=== PATIENT | male | born 1950 | race Caucasian/White ===

== ENCOUNTER → 2020-08-03 07:59 | Outpatient (CLI) | payer MEDICARE, OTHER, SELFPAY ==
--- NOTE | 2020-08-03 08:12 | DI.RAD.S_ITS ---
PROCEDURE: XR LUMBAR SPINE MIN 4V INDICATIONS: update imaging TECHNIQUE: 4 views of the lumbar spine were acquired. COMPARISON: None. FINDINGS: Bones: No fracture. Multilevel degenerative endplate sclerosis and spurring. Diffuse facet arthropathy. Severe diffuse narrowing of the lumbar disc spacesMultilevel degenerative endplate sclerosis and spurring. Diffuse facet arthropathy. Grade 1 retrolisthesis of L2 on L3-L3 on L4 and L4 on L5. Straightening of the normal lordotic curvature. Slight levocurvature. Bilateral mild hip joint degeneration. Soft tissues: Scattered vascular calcifications seen in the aorta. Oblique images: No pars defects. IMPRESSION: Severe multilevel lumbar spondylosis and facet arthropathy as above Dictated by: Manan Iverson M.D. on 08/03/2020 at 10:59 Approved by: Manan Iverson M.D. on 08/03/2020 at 11:02
== END ==
PROVIDERS: Family Provider Family Medicine; PCP Family Medicine; Referring Provider Physical Medicine & Rehabilitation; Visit Provider Physical Medicine & Rehabilitation
DX: M47.816 Spondylosis without myelopathy or radiculopathy, lumbar region (principal)
CPT/HCPCS: 72110; 99214

== ENCOUNTER → 2020-08-22 14:45 | Outpatient (CLI) | payer MEDICARE, OTHER, SELFPAY ==
[2020-08-22 16:15] LABS: COVID19 -Nasal RAPID Negative (Negative)
== END ==
PROVIDERS: Family Provider Family Medicine; PCP Family Medicine; Visit Provider Physical Medicine & Rehabilitation
DX: Z20.822 Contact with and (suspected) exposure to COVID-19 (principal); Z01.812 Encounter for preprocedural laboratory examination
CPT/HCPCS: 87635; C9803

== ENCOUNTER 2020-08-23 08:57 | Outpatient (CLI) | payer MEDICARE, OTHER, SELFPAY ==
[2020-08-23] VITALS (8 sets, daily range): BP systolic 119–182; BP diastolic 60–82; PULSE 51–61; RESP 11–18; TEMP 35.9; O2SAT 93–97
--- NOTE | 2020-08-23 09:00 | DI.RAD.S_ITS ---
PROCEDURE: PAIN L INTERLAMINAR/CAUDAL INJ INDICATIONS: SPONDYLOSIS COMPARISON: [facility], CR, XR LUMBAR SPINE MIN 4V, 08/03/2020, 8:29. FINDINGS: Fluoroscopic spot filming was performed to verify placement of a spinal needle at the L2-L3 level, as labeled on the films. Appropriate location of the needle tip was confirmed by injection of iodinated contrast. IMPRESSION: Intraprocedural examination within normal limits. Dictated by: Ralph Bueno M.D. on 08/23/2020 at 9:27 Approved by: Ralph Bueno M.D. on 08/23/2020 at 9:28
[2020-08-23] MEDS: MIDAZOLAM 5 MG/5 ML VIAL IV (09:52)
[2020-08-23] MEDS: fentaNYL 100 MCG/2 ML INJ 50 MCG IV (09:56)
[2020-08-23] MEDS: IOPAMIDOL 15 ML VIAL 3 ML INJ (09:58)
[2020-08-23] MEDS: BETAMETHASONE 30 MG/5 ML MDV 6 MG INJ (09:59)
[2020-08-23] MEDS: BUPIVACAINE 0.25% (PF) VIAL 2 ML INJ (09:59)
[2020-08-23] MEDS: DEXAMETHASONE 10 MG/ML VIAL 20 MG INJ (09:59)
--- NOTE | 2020-08-23 10:04 | P.PCN_ITS ---
Date/Time/Diagnoses Date of procedure: 08/23/20 Time of procedure: 10:04 Pre-procedure diagnosis: 1. HNP WITH RADICULAR FEATURES, 2. MULTILEVEL CENTRAL STENOSIS, Post-procedure diagnosis: same Procedure Notes Procedure: 1. FLUOROSCOPICALLY GUIDED CONTRAST CONTROLLED INTERLAMINAR EPIDURAL STEROID INJECTION - L2/3 Indications: Compa is referred by Dr. Gil for treatment of Bilateral Foraminal Stenosis L>R LE symptoms. Physician: Yvon Collado Total Fluoroscopy time (seconds): 6 Total sedation minutes: 10 Complications: none Procedure in detail & Post-procedure care: FINDINGS Multilevel Central Spinal Stenosis with Nerve Root Compression DESCRIPTION OF PROCEDURE Fluoroscopically guided, contrast-controlled L2/3 translaminar epidural steroid injection. Following review of allergy and review of potential side effects and complications, including, but not necessarily limited to, infection, allergic reaction, local tissue breakdown, temporary as well as permanent nerve injury, paralysis, stroke and possible , the patient indicated that the patient understood and agreed to proceed. An informed consent document was signed by the patient, witnessed by a nurse, and placed in the patient's chart. Additionally, other treatment options including modalities, medications, and physical therapy were reviewed with the patient. After review of previous anaesthesic history and IV conscious sedation the patient was deemed safe to proceed with today?s procedure with IV conscious sedation as ASA class II designation. Safety time-out was performed to confirm patient ID, procedure to be performed and site of procedure. IV sedation was accomplished with a combination of 2mg Versed and 50mcg of Fentanyl administered by the RN after DO order, titrated to patient comfort during the course of the procedure while the patient remained responsive to all verbal commands. In the prone position, following sterile prep and drape of the lumbar region,the L2/3 translaminar space was identified fluoroscopically. The skin was anesthetized via a 25-gauge, 1.5-inch needle with 1% lidocaine solution. At this point, a 22-gauge short bevel spinal needle was atraumatically introduced and advanced under fluoroscopic guidance into the region of the L2/3 translaminar space. Depth was confirmed on lateral view. Radiological data, including multiple fluoroscopic views of the lumbar spine, reveal a spinal needle at the L2/3 translaminar space. Lateral views then show placement of the needle in the epidural space. Subsequent views show contrast material flowing superiorly and inferiorly in the epidural space. No vascular or intrathecal uptake is observed. At this point, using loss of resistance technique with saline and air, the epidural space was entered. This was confirmed following negative aspiration with injection of approximately 1.5 cc of Isovue 200, showing excellent epidural flow without vascular or intrathecal uptake. At this point, 1 cc of 1% lidocaine solution combined with 3cc or 20mg of dexamethasone and 6mg of betamethasone was injected without incident. The patient tolerated the procedure well without signs or symptoms of compl ications prior to transfer to the recovery area continued monitoring without incident. The patient was then transferred to the recovery area where they were observed for an appropriate period of time after the injection. The patient reported a VAS score of 6 prior to the procedure and a post-procedure VAS of 0. POST OP INSTRUCTIONS The patient was provided a Pain Log to continue to record their response to the target-specific procedure prior to follow-up visit with their referring physician. Additionally, specific post-injection care instructions and a contact number to our office were provided if concerns arise regarding possible complications associated with the procedure are suspected.
== END 2020-08-23 10:30 | disposition home or self-care (01) ==
LOC: RAD 08:59
PROVIDERS: Family Provider Family Medicine; PCP Family Medicine; Referring Provider Family Medicine; Visit Provider Physical Medicine & Rehabilitation
DX: M51.16 Intervertebral disc disorders with radiculopathy, lumbar region (principal); M48.061 Spinal stenosis, lumbar region without neurogenic claudication
CPT/HCPCS: 62323; 99152; J0702; J1100; J2250; J3010

== ENCOUNTER → 2020-10-31 09:46 | Outpatient (CLI) | payer MEDICARE, OTHER, SELFPAY ==
[2020-10-31 10:21] LABS: COVID19 -Nasal RAPID Negative (Negative)
== END ==
PROVIDERS: Family Provider Family Medicine; PCP Family Medicine; Visit Provider Physical Medicine & Rehabilitation
DX: Z20.822 Contact with and (suspected) exposure to COVID-19 (principal)
CPT/HCPCS: 87635; C9803

== ENCOUNTER 2020-11-01 07:58 | Outpatient (CLI) | payer MEDICARE, OTHER, SELFPAY ==
[2020-11-01] VITALS (8 sets, daily range): BP systolic 108–160; BP diastolic 53–73; PULSE 47–56; RESP 12–17; TEMP 36.5; O2SAT 93–98
--- NOTE | 2020-11-01 08:00 | DI.RAD.S_ITS ---
PROCEDURE: PAIN L/S TRANSFORAMINAL INJECT INDICATIONS: SPONDYLOSIS COMPARISON: [facility], XA, PAIN L INTERLAMINAR/CAUDAL INJ, 08/23/2020, 9:55. FINDINGS: Fluoroscopic spot filming was performed to verify placement of a spinal needle at the L4-L5 level, as labeled on the films. Appropriate location of the needle tip was confirmed by injection of iodinated contrast. IMPRESSION: Intraprocedural examination within normal limits. Dictated by: Ralph Bueno M.D. on 11/01/2020 at 11:51 Approved by: Ralph Bueno M.D. on 11/01/2020 at 11:52
[2020-11-01] MEDS: MIDAZOLAM 5 MG/5 ML VIAL IV (08:56)
[2020-11-01] MEDS: fentaNYL 100 MCG/2 ML INJ 50 MCG IV (08:56)
[2020-11-01] MEDS: DEXAMETHASONE 10 MG/ML VIAL 20 MG INJ (08:59)
[2020-11-01] MEDS: IOPAMIDOL 15 ML VIAL 3 ML INJ (09:00)
[2020-11-01] MEDS: methylPREDNISolone acetate 80 MG/ML VIAL INJ (09:00)
[2020-11-01] MEDS: BUPIVACAINE 0.25% (PF) VIAL 2 ML INJ (09:00)
--- NOTE | 2020-11-01 09:06 | P.PCN_ITS ---
Date/Time/Diagnoses Date of procedure: 11/01/20 Time of procedure: 09:07 Pre-procedure diagnosis: 1. FORAMINAL STENOSIS WITH LE SYMPTOMS Post-procedure diagnosis: same Procedure Notes Procedure: 1. FLUOROSCOPICALLY GUIDED CONTRAST CONTROLLED TRANSFORAMINAL EPIDURAL STEROID INJECTION - RIGHT L4/5 TFESI Indications: Compa is referred by Dr. Gil for treatment of Foraminal Stenosis with Right LE Symptoms Physician: Yvon Collado Total Fluoroscopy time (seconds): 7 Total sedation minutes: 9 Complications: none Procedure in detail & Post-procedure care: FINDINGS Foraminal Nerve Root Compression secondary to disc disease and facet hypertrophy DESCRIPTION OF PROCEDURE Following review of allergy and review of potential side effects and complications, including, but not necessarily limited to, infection, allergic reaction, local tissue breakdown, stroke, temporary or permanent nerve injury, paralysis, and possible , the patient indicated that the patient understood and agreed to proceed. An informed consent document was signed by the patient, witnessed by a nurse, and placed in the patient's chart. Additionally, other treatment options including medications, modalities, and physical therapy were reviewed with the patient. After review of previous anaesthesic history and IV conscious sedation the patient was deemed safe to proceed with today?s procedure with IV conscious sedation as ASA class II designation. Safety time-out was performed to confirm patient ID, procedure to be performed and site of procedure. IV sedation was accomplished with a combination of 2mg of Versed and 50mcg of Fentanyl was administered by the RN after DO order, titrated to patient comfort during the course of the procedure while the patient remained responsive to all verbal c ommands In the prone position following sterile prep and drape of the lumbar region, the right L4/5 posterior neuroforamen was identified fluoroscopically. The skin was anesthetized via a 25-gauge 1.5-inch needle with 1% lidocaine solution. At this point, a 25-gauge 3.5-inch spinal needle was atraumatically introduced and advanced under fluoroscopic guidance through the posterior right L4/5 neuroforamen to approximately the anterior aspect of the canal. Depth was confirmed on lateral view. Following negative aspiration, injection of approximately 1.5cc of Isovue 200 under live fluoroscopy in the AP view confirmed excellent flow along the nerve root, into the epidural space without vascular or intrathecal uptake observed Radiological data, including multiple fluoroscopic views of the lumbosacral spine, reveal a spinal needle at the right L4/5 posterior neuroforamen. Subsequent views show flow of contrast material flowing superiorly and inferiorly along the nerve root confirming epidural flow. Subsequently, a test dose of 1.5 cc of 1% lidocaine solution was administered and patient was observed for two minutes for signs or symptoms of complications, including abdominal pain, shortness of breath, bilateral upper or lower extremity weakness, nausea and vomiting, prior to steroid injection. At this point, a total of 3cc or 20mg of dexamethasone and 80mg of depo-medrol was injected without incident. The procedure tolerated the procedure well without signs or symptoms of complications prior to transfer to the recovery area continued monitoring without incident. The patient was then transferred to the recovery area where they were observed for an appropriate time after the injection. The patient reported a VAS score of 7 prior to the procedure and a post-p rocedure VAS of 0. POST OP INSTRUCTIONS The patient was provided a Pain Log to continue to record their response to the target-specific procedure prior to follow-up visit with their referring physician. Additionally, specific post-injection care instructions and a contact number to our office were provided if concerns arise regarding possible complications associated with the procedure are suspected.
== END 2020-11-01 11:35 | disposition home or self-care (01) ==
LOC: RAD 08:00
PROVIDERS: Family Provider Family Medicine; PCP Family Medicine; Referring Provider Family Medicine; Visit Provider Physical Medicine & Rehabilitation
DX: M48.061 Spinal stenosis, lumbar region without neurogenic claudication (principal); M51.16 Intervertebral disc disorders with radiculopathy, lumbar region
CPT/HCPCS: 64483; J1040; J1100; J2250; J3010

== ENCOUNTER → 2021-02-13 08:52 | Outpatient (CLI) | payer MEDICARE, OTHER, SELFPAY ==
--- NOTE | 2021-02-13 08:54 | DI.RAD.S_ITS ---
PROCEDURE: XR KUB INDICATIONS: Renal lithiasis/BPH TECHNIQUE: 2 AP views of the abdomen acquired. COMPARISON: [facility], CT, CT ABDOMEN PELVIS WO CON, 02/13/2021, 9:02. FINDINGS: Surgical changes and devices: None. Bowel: Bowel gas pattern is normal. Soft tissues: Small calcifications are seen projecting over the kidneys bilaterally, compatible renal calculi. Visualized solid organ contours appear normal in size. Calcifications projecting over the pelvis are most likely phleboliths. Bones: No suspicious bony lesions. Multilevel degenerative changes are seen in the lumbar spine. IMPRESSION: Multiple small calcifications projecting over the kidneys bilaterally. Please see the subsequently performed CT of the abdomen and pelvis from the same day for more detailed evaluation. Dictated by: Krishna Berrios M.D. on 02/13/2021 at 12:48 Approved by: Krishna Berrios M.D. on 02/13/2021 at 12:51
--- NOTE | 2021-02-13 09:17 | DI.CT.S_ITS ---
PROCEDURE: CT ABDOMEN PELVIS WO CON INDICATIONS: uric acid stones TECHNIQUE: Noncontrast 5 mm thick sections acquired from the diaphragms to the symphysis. 5 mm coronal and sagittal reformats were then performed. For radiation dose reduction, the following was used: automated exposure control, adjustment of mA and/or kV according to patient size. COMPARISON: None. FINDINGS: Image quality: Excellent. Lung bases: Lung bases are clear. Heart size is normal. The coronary arteries have atherosclerotic calcifications. Solid organs: Liver: The liver has no mass or intrahepatic biliary ductal dilatation. The portal vein and hepatic veins are patent. Biliary: The gallbladder has no gallstones, pericholecystic fluid, gallbladder wall thickening, or surrounding inflammatory change. Pancreas: The pancreas has no mass or ductal dilatation. There is no surrounding inflammation. Spleen: Normal size. There are no masses. Adrenals: No hypertrophy or nodules. Kidneys: Multiple nonobstructive 2-3 millimeter calculi are seen within the kidneys. The left kidney has a 1.4 centimeter area of calcification in the mid pole likely a hemorrhagic cyst. No solid mass. No cystic mass. Peritoneum and bowel: The distal esophagus and stomach are normal. The small bowel has a normal caliber and appearance. The terminal ileum is normal. The large bowel has increased stool consistent with constipation. There is diverticulosis without evidence of diverticulitis. The appendix is normal. No free fluid or air. Nodes and vessels: No retroperitoneal or mesenteric adenopathy by size criteria. The aorta has atherosclerosis with no aneurysmal dilatation. Miscellaneous: No abdominal wall mass or hernia. PELVIS: Genitourinary: The bladder has no wall thickening or mass. No bladder calcifications. Miscellaneous: No inguinal hernias or adenopathy. Bones: There are multilevel degenerative changes. Multilevel vacuum disc changes at multiple levels are seen consistent with disc disease. No suspicious bony lesions. No vertebral body compression fractures. IMPRESSION: 1. Multiple 2-3 millimeter nonobstructive calculi are seen within both kidneys. 2. No acute abnormality of the abdomen or pelvis. Dictated by: Eugenio Bautista M.D. on 02/13/2021 at 17:19 Approved by: Eugenio Bautista M.D. on 02/13/2021 at 17:54
== END ==
PROVIDERS: Family Provider Family Medicine; PCP Family Medicine; Referring Provider Urology; Visit Provider Urology
DX: N20.0 Calculus of kidney (principal); N40.1 Benign prostatic hyperplasia with lower urinary tract symptoms; R35.0 Frequency of micturition
CPT/HCPCS: 74018; 74176

== ENCOUNTER → 2021-08-21 09:49 | Outpatient (CLI) | payer MEDICARE, OTHER, SELFPAY ==
--- NOTE | 2021-08-21 09:51 | DI.RAD.S_ITS ---
PROCEDURE: XR KUB INDICATIONS: checking for renal calculi TECHNIQUE: One view of the abdomen acquired. COMPARISON: [facility], CR, XR KUB, 02/13/2021, 8:52. FINDINGS: Surgical changes and devices: None. Bowel: Bowel gas pattern is normal. Bowel contents obscure the kidneys. Soft tissues: No suspicious abdominal calcifications. Visualized solid organ contours appear normal in size. Probable tiny bilateral renal calculi. Bones: No suspicious bony lesions. IMPRESSION: Probable tiny bilateral renal calculi, obscured by bowel contents. Dictated by: Rhys Nance M.D. on 08/21/2021 at 12:38 Approved by: Rhys Nance M.D. on 08/21/2021 at 12:39
== END ==
PROVIDERS: Family Provider Family Medicine; PCP Family Medicine; Referring Provider Urology; Visit Provider Urology
DX: N20.0 Calculus of kidney (principal); R32 Unspecified urinary incontinence; R15.9 Full incontinence of feces
CPT/HCPCS: 74018

== ENCOUNTER → 2022-08-16 09:27 | Outpatient (CLI) | payer MEDICARE, OTHER, SELFPAY ==
--- NOTE | 2022-08-16 09:29 | DI.RAD.S_ITS ---
PROCEDURE: XR KUB INDICATIONS: Renal calculi TECHNIQUE: One view of the abdomen acquired. COMPARISON: [facility], CR, XR KUB, 08/21/2021, 9:52. FINDINGS: Surgical changes and devices: None. Bowel: Bowel gas pattern is normal. Soft tissues: Nonspecific calcifications projecting over the renal shadows measure 9 mm in the right and 4 mm on the left, similar prior exam Bones: Degenerative disc disease and arthropathy with marginal osteophytes convex left thoracolumbar scoliosis IMPRESSION: Bilateral renal calculi, similar to the prior exam Degenerative disc disease and arthropathy Approved by: Hamlet Stevens M.D. on 08/16/2022 at 12:19
[2022-08-16 10:26] LABS: BUN Creatinine Ratio 22.4 (6-22); Blood Urea Nitrogen 17 mg/dL (9-20); Calcium 9.4 mg/dL (8.4-10.2); Carbon Dioxide 31 mmol/L (22-32); Chloride 102 mmol/L (98-107); Estimated Glomerular Filt Rate > 60 mL/min (>60); Glucose 108 mg/dL (80-110); HEMOLYSIS 19 (0-50); Potassium 5.4 mmol/L (3.4-5.1); Sodium 141 mmol/L (137-145)
[2022-08-16 10:54] LABS: Prostate Specific Antigen Scrn 0.433 ng/mL (0.1-4.0)
== END ==
PROVIDERS: Family Provider Family Medicine; PCP Physician Assistant; Referring Provider Urology; Visit Provider Urology
DX: Z12.5 Encounter for screening for malignant neoplasm of prostate (principal); N20.0 Calculus of kidney; M41.9 Scoliosis, unspecified; M47.819 Spondylosis without myelopathy or radiculopathy, site unspecified
CPT/HCPCS: 36415; 74018; 80048; G0103

== ENCOUNTER → 2022-08-17 11:27 | Outpatient (CLI) | payer MEDICARE, OTHER, SELFPAY ==
[2022-08-17 13:38] LABS: BUN Creatinine Ratio 16.4 (6-22); Blood Urea Nitrogen 10 mg/dL (9-20); Calcium 9.1 mg/dL (8.4-10.2); Carbon Dioxide 27 mmol/L (22-32); Chloride 102 mmol/L (98-107); Estimated Glomerular Filt Rate > 60 mL/min (>60); Glucose 101 mg/dL (80-110); HEMOLYSIS < 15 (0-50); Potassium 4.2 mmol/L (3.4-5.1); Sodium 140 mmol/L (137-145)
== END ==
PROVIDERS: Family Provider Family Medicine; PCP Physician Assistant; Referring Provider Urology; Visit Provider Urology
DX: Z01.812 Encounter for preprocedural laboratory examination (principal)
CPT/HCPCS: 36415; 80048

== ENCOUNTER → 2023-04-17 14:04 | Outpatient (CLI) | payer MEDICARE, OTHER, SELFPAY ==
--- NOTE | 2023-04-17 14:05 | DI.RAD.S_ITS ---
PROCEDURE: XR LUMBAR SPINE MIN 4V INDICATIONS: BACK PAIN TECHNIQUE: 5 views of the lumbar spine were acquired, including bilateral oblique views. COMPARISON: [facility], , XR LUMBAR SPINE MIN 4V, 08/03/2020, 8:29. FINDINGS: Bones: 5 nonrib-bearing vertebrae are present. Levocurvature of the lumbar spine. Mild anterolisthesis of L4 on L5. Multilevel severe disc height loss with degenerative endplate changes and osteophytosis. Multilevel facet arthropathy. No vertebral body compression fractures. No suspicious bony lesions. Soft tissues: Overlying bowel gas pattern is normal. No suspicious soft tissue calcifications. Atherosclerotic vascular calcifications. Oblique images: Limit evaluation for pars defect secondary to superimposed degenerative changes. IMPRESSION: Severe multilevel degenerative changes of the lumbar spine. Dictated by: Jason Valles M.D. on 04/17/2023 at 15:06 Approved by: Jason Valles M.D. on 04/17/2023 at 15:08
== END ==
PROVIDERS: Family Provider Family Medicine; PCP Physician Assistant; Referring Provider Physical Medicine & Rehabilitation; Visit Provider Physical Medicine & Rehabilitation
DX: M51.26 Other intervertebral disc displacement, lumbar region (principal); M48.00 Spinal stenosis, site unspecified; M47.816 Spondylosis without myelopathy or radiculopathy, lumbar region
CPT/HCPCS: 72110

== ENCOUNTER 2023-04-23 08:46 | Outpatient (CLI) | payer MEDICARE, OTHER, SELFPAY ==
[2023-04-23] VITALS (9 sets, daily range): BP systolic 106–152; BP diastolic 56–72; PULSE 44–53; RESP 11–20; TEMP 35.6; O2SAT 97–98
--- NOTE | 2023-04-23 08:48 | DI.RAD.S_ITS ---
PROCEDURE: PAIN L/S TRANSFORAMINAL INJECT INDICATIONS: SPONDYLOSIS COMPARISON: [facility], , PAIN L/S TRANSFORAMINAL INJECT, 11/01/2020, 8:59. FINDINGS: Fluoroscopic spot filming was performed to verify placement of a spinal needle at the L4-L5 level, as labeled on the films. Appropriate location of the needle tip was confirmed by injection of iodinated contrast. IMPRESSION: Intraprocedural examination within normal limits. Dictated by: Ralph Bueno M.D. on 04/23/2023 at 11:27 Approved by: Ralph Bueno M.D. on 04/23/2023 at 11:27
[2023-04-23] MEDS: MIDAZOLAM 2 MG/2 ML VIAL IV (09:27)
[2023-04-23] MEDS: BETAMETHASONE 30 MG/5 ML MDV 6 MG INJ (09:31)
[2023-04-23] MEDS: DEXAMETHASONE 10 MG/ML VIAL INJ (09:31)
[2023-04-23] MEDS: IOPAMIDOL 15 ML VIAL 3 ML INJ (09:33)
[2023-04-23] MEDS: BUPIVACAINE 0.25% (PF) VIAL 2 ML INJ (09:33)
--- NOTE | 2023-04-23 09:41 | P.PCN_ITS ---
Date/Time/Diagnoses Date of procedure: 04/23/23 Time of procedure: 09:41 Pre-procedure diagnosis: 1. FORAMINAL STENOSIS WITH LE SYMPTOMS Post-procedure diagnosis: same Procedure Notes Procedure: 1. FLUOROSCOPICALLY GUIDED CONTRAST CONTROLLED TRANSFORAMINAL EPIDURAL STEROID INJECTION - RIGHT L4/5 TFESI Indications: Compa is referred by LELAND Barnes for treatment of Foraminal Stenosis with Right LE Symptoms Physician: Yvon Collado Total Fluoroscopy time (seconds): 10 Total sedation minutes: 11 Complications: none Procedure in detail & Post-procedure care: FINDINGS Foraminal Nerve Root Compression secondary to disc disease and facet hypertrophy DESCRIPTION OF PROCEDURE Following review of allergy and review of potential side effects and complications, including, but not necessarily limited to, infection, allergic reaction, local tissue breakdown, stroke, temporary or permanent nerve injury, paralysis, and possible , the patient indicated that the patient understood and agreed to proceed. An informed consent document was signed by the patient, witnessed by a nurse, and placed in the patient's chart. Additionally, other treatment options including medications, modalities, and physical therapy were reviewed with the patient. After review of previous anaesthesic history and IV conscious sedation the patient was deemed safe to proceed with today?s procedure with IV conscious sedation as ASA class II designation. Safety time-out was performed to confirm patient ID, procedure to be performed and site of procedure. IV sedation was accomplished with a combination of 2mg of Versed was administered by the RN after DO order, titrated to patient comfort during the course of the procedure while the patient remained responsive to all verbal commands In the prone position following sterile prep and drape of the lumbar region, the right L4/5 posterior neuroforamen was identified fluoroscopically. The skin was anesthetized via a 25-gauge 1.5-inch needle with 1% lidocaine solution. At this point, a 25-gauge 3.5-inch spinal needle was atraumatically introduced and advanced under fluoroscopic guidance through the posterior right L4/5 neuroforamen to approximately the anterior aspect of the canal. Depth was confirmed on lateral view. Following negative aspiration, injection of approximately 1.5cc of Isovue 200 under live fluoroscopy in the AP view con firmed excellent flow along the nerve root, into the epidural space without vascular or intrathecal uptake observed Radiological data, including multiple fluoroscopic views of the lumbosacral spine, reveal a spinal needle at the right L4/5 posterior neuroforamen. Subsequent views show flow of contrast material flowing superiorly and inferiorly along the nerve root confirming epidural flow. Subsequently, a test dose of 1.5 cc of 1% lidocaine solution was administered and patient was observed for two minutes for signs or symptoms of complications, including abdominal pain, shortness of breath, bilateral upper or lower extremity weakness, nausea and vomiting, prior to steroid injection. At this point, a total of 2cc or 10mg of dexamethasone and 6mg of betamethasone was injected without incident. The procedure tolerated the procedure well without signs or symptoms of complications prior to transfer to the recovery area continued monitoring without incident. The patient was then transferred to the recovery area where they were observed for an appropriate time after the injection. The patient reported a VAS score of 7 prior to the procedure and a post- procedure VAS of 0. POST OP INSTRUCTIONS The patient was provided a Pain Log to continue to record their response to the target-specific procedure prior to follow-up visit with their referring p hysician. Additionally, specific post-injection care instructions and a contact number to our office were provided if concerns arise regarding possible complications associated with the procedure are suspected.
== END 2023-04-23 10:00 | disposition home or self-care (01) ==
PROVIDERS: Family Provider Family Medicine; PCP Physician Assistant; Referring Provider Physical Medicine & Rehabilitation; Visit Provider Physical Medicine & Rehabilitation
DX: M48.061 Spinal stenosis, lumbar region without neurogenic claudication (principal); M51.16 Intervertebral disc disorders with radiculopathy, lumbar region; M47.26 Other spondylosis with radiculopathy, lumbar region
CPT/HCPCS: 64483; 99152; J0702; J1100; J2250

== ENCOUNTER 2023-08-06 09:34 | Outpatient (CLI) | payer MEDICARE, OTHER, SELFPAY ==
[2023-08-06] VITALS (8 sets, daily range): BP systolic 118–164; BP diastolic 66–87; PULSE 50–60; RESP 10–20; TEMP 36.2; O2SAT 95–98
--- NOTE | 2023-08-06 10:15 | DI.RAD.S_ITS ---
PROCEDURE: PAIN L/S FACET INJ/BLK 1ST JARED INDICATIONS: FACET ARTHOPATHY COMPARISON: None. FINDINGS: Fluoroscopic spot filming was performed to verify placement of spinal needles at the bilateral L2, L3 and L4 level(s), as labeled on the films. Appropriate location(s) of the needle tip(s) was confirmed by injection of iodinated contrast. IMPRESSION: Needle placement at bilateral L2, L3 and L4 levels with contrast injection Approved by: Danyelle Zimmerman M.D. on 08/06/2023 at 11:40
[2023-08-06] MEDS: MIDAZOLAM 2 MG/2 ML VIAL IV (10:30)
[2023-08-06] MEDS: iopamidoL 15 ML VIAL 3 ML INJ (10:31)
[2023-08-06] MEDS: LIDOCAINE 1% 20 ML 5 ML INJ (10:32)
[2023-08-06] MEDS: BUPIVACAINE 0.5% (PF) 10 ML VIAL 2 ML INJ (10:33)
--- NOTE | 2023-08-06 10:45 | PM.PROC.IR.1 ---
Date/Time/Diagnoses Date of procedure: 08/06/23 Time of procedure: 10:45 Pre-procedure diagnosis: FACET ARTHROPATHY Post-procedure diagnosis: same Procedure Notes Procedure: 1. BILATERAL L2, L3, L4 DIAGNOSTIC MB BLOCKS Indications: Compa is referred by LELAND Barnes for treatment of Bilateral Axial LBP. Physician: Yvon Collado Total Fluoroscopy time (seconds): 10 Total sedation minutes: 10 Complications: none Procedure in detail & Post-procedure care: DESCRIPTION OF PROCEDURE Fluoroscopically guided, contrast-controlled bilateral L2, L3, L4 medial branch blocks with 0.5cc of 0.5% Marcaine. Following review of allergy and review of potential side effects and complications, including, but not necessarily limited to, infection, allergic reaction, local tissue breakdown, nerve injury, paralysis, stroke and possible , the patient indicated that the patient understood and agreed to proceed. An informed consent document was signed by the patient, witnessed by a nurse, and placed in the patient's chart. After review of previous anaesthesic history and IV conscious sedation the patient was deemed safe to proceed with today's procedure with IV conscious sedation as ASA class II designation. Safety time-out was performed to confirm patient ID, procedure to be performed and site of procedure. IV sedation was accomplished with a combination of 2mg of Versed was administered by the RN after DO order, titrated to patient comfort during the course of the procedure while the patient remained responsive to all verbal commands In the prone position, following sterile prep and drape of the lumbar region, the right L2, L3, L4 anatomical location of the medial branch of the dorsal ramus was identified fluoroscopically. Subsequently an anesthetic skin wheal using 1% lidocaine solution was initiated at each of the anatomical spots. Subsequently then a 22-gauge 3.5-inch spinal needle was atraumatically introduced and advanced under fluoroscopic guidance at each of the corresponding sites at the right L2, L3, L4 MB. After negative aspiration, 0.2cc of Isovue 200 was injected, confirming placement without vascular or intrathecal uptake. Subsequently then 0.5cc of 0.5% Marcaine solution was injected at each of the corresponding sites at the right L2 L3, L4 medial branch locations. The identical procedure was replicated on the left. The patient tolerated the procedure well without signs or symptoms of complications. The patient tolerated the procedure well without signs or symptoms of complications prior to transfer to the recovery area continued monitoring without incident. Post-procedure, the patient was monitored initiating provocative activities to measure the amount of relief from block of the facetogenic pain. The patient reported a VAS of 7 prior to the procedure and a post-procedure VAS of 1. It has been a pleasure to assist in the diagnostic and therapeutic care of your patient. POST OP INSTRUCTIONS The patient was provided with a Pain Log to complete over the next several hours and subsequent days prior to the patient's follow up with the ordering physician. If the patient has shipping and receiving assistant relief to the solution applied, then they may be a candidate for medial branch rhizotomy. The patient is aware, was provided, once again, with a Pain Log and will follow up with the referring physician for review and clinical correlation
--- NOTE | 2023-08-07 11:07 | PC.NURSE ---
Procedure follow up call: Spoke with Compa @ 1446. No questions or concerns. Transferred to clinic to schedule follow up appointment.
== END 2023-08-06 11:08 | disposition home or self-care (01) ==
PROVIDERS: Family Provider Family Medicine; PCP Physician Assistant; Referring Provider Physical Medicine & Rehabilitation; Visit Provider Physical Medicine & Rehabilitation
DX: M47.816 Spondylosis without myelopathy or radiculopathy, lumbar region (principal)
CPT/HCPCS: 64493; 64494; 99152; J2250

== ENCOUNTER 2024-03-05 15:03 | Outpatient (CLI) | payer MEDICARE, OTHER, SELFPAY ==
[2024-03-05] VITALS (9 sets, daily range): BP systolic 127–160; BP diastolic 71–84; PULSE 52–64; RESP 12–18; TEMP 36.8; O2SAT 94–98
--- NOTE | 2024-03-05 15:30 | DI.RAD.S_ITS ---
PROCEDURE: PAIN L/S TRANSFORAMINAL INJECT INDICATIONS: Right L4-5 transforaminal MITZY COMPARISON: [facility], , PAIN L/S TRANSFORAMINAL INJECT, 04/23/2023, 9:31. FINDINGS: Fluoroscopic spot filming was performed to verify placement of spinal needles at the L4-5 level(s), as labeled on the films. Appropriate location(s) of the needle tip(s) was confirmed by injection of iodinated contrast. IMPRESSION: Fluoro guidance was provided intraoperatively for right L4-5 transforaminal MITZY performed by ordering physician. Dictated by: Rodolfo Drummond M.D. on 03/06/2024 at 9:39 Approved by: Rodolfo Drummond M.D. on 03/06/2024 at 10:24
[2024-03-05] MEDS: MIDAZOLAM 2 MG/2 ML VIAL IV (15:57)
[2024-03-05] MEDS: iopamidoL 15 ML VIAL 3 ML INJ (16:05)
[2024-03-05] MEDS: BETAMETHASONE 30 MG/5 ML MDV 6 MG INJ (16:06)
[2024-03-05] MEDS: BUPIVACAINE 0.25% (PF) VIAL 5 ML INJ (16:06)
[2024-03-05] MEDS: DEXAMETHASONE 10 MG/ML VIAL INJ (16:07)
--- NOTE | 2024-03-05 16:15 | P.PCN_ITS ---
Date/Time/Diagnoses Date of procedure: 03/05/24 Time of procedure: 16:15 Pre-procedure diagnosis: 1. FORAMINAL STENOSIS WITH LE SYMPTOMS Post-procedure diagnosis: same Procedure Notes Procedure: 1. FLUOROSCOPICALLY GUIDED CONTRAST CONTROLLED TRANSFORAMINAL EPIDURAL STEROID INJECTION - RIGHT L4/5 TFESI Indications: Compa is referred by LELAND Barnes for treatment of Foraminal Stenosis with Right LE Symptoms Physician: Yvon Collado Total Fluoroscopy time (seconds): 10 Total sedation minutes: 14 Complications: none Procedure in detail & Post-procedure care: FINDINGS Foraminal Nerve Root Compression secondary to disc disease and facet hypertrophy DESCRIPTION OF PROCEDURE Following review of allergy and review of potential side effects and complications, including, but not necessarily limited to, infection, allergic reaction, local tissue breakdown, stroke, temporary or permanent nerve injury, paralysis, and possible , the patient indicated that the patient understood and agreed to proceed. An informed consent document was signed by the patient, witnessed by a nurse, and placed in the patient's chart. Additionally, other treatment options including medications, modalities, and physical therapy were reviewed with the patient. After review of previous anaesthesic history and IV conscious sedation the patient was deemed safe to proceed with today?s procedure with IV conscious sedation as ASA class II designation. Safety time-out was performed to confirm patient ID, procedure to be performed and site of procedure. IV sedation was accomplished with a combination of 2mg of Versed was administered by the RN after DO order, titrated to patient comfort during the course of the procedure while the patient remained responsive to all verbal commands In the prone position following sterile prep and drape of the lumbar region, the right L4/5 posterior neuroforamen was identified fluoroscopically. The skin was anesthetized via a 25-gauge 1.5-inch needle with 1% lidocaine solution. At this point, a 25-gauge 3.5-inch spinal needle was atraumatically introduced and advanced under fluoroscopic guidance through the posterior right L4/5 neuroforamen to approximately the anterior aspect of the canal. Depth was confirmed on lateral view. Following negative aspiration, injection of approximately 1.5cc of Isovue 200 under live fluoroscopy in the AP view con firmed excellent flow along the nerve root, into the epidural space without vascular or intrathecal uptake observed Radiological data, including multiple fluoroscopic views of the lumbosacral spine, reveal a spinal needle at the right L4/5 posterior neuroforamen. Subsequent views show flow of contrast material flowing superiorly and inferiorly along the nerve root confirming epidural flow. Subsequently, a test dose of 1.5 cc of 1% lidocaine solution was administered and patient was observed for two minutes for signs or symptoms of complications, including abdominal pain, shortness of breath, bilateral upper or lower extremity weakness, nausea and vomiting, prior to steroid injection. At this point, a total of 2cc or 10mg of dexamethasone and 6mg of betamethasone was injected without incident. The procedure tolerated the procedure well without signs or symptoms of complications prior to transfer to the recovery area continued monitoring without incident. The patient was then transferred to the recovery area where they were observed for an appropriate time after the injection. The patient reported a VAS score of 7 prior to the procedure and a post- procedure VAS of 0. POST OP INSTRUCTIONS The patient was provided a Pain Log to continue to record their response to the target-specific procedure prior to follow-up visit with their referring p hysician. Additionally, specific post-injection care instructions and a contact number to our office were provided if concerns arise regarding possible complications associated with the procedure are suspected.
== END 2024-03-05 16:30 | disposition home or self-care (01) ==
PROVIDERS: Family Provider Family Medicine; PCP Physician Assistant; Referring Provider Physical Medicine & Rehabilitation; Visit Provider Physical Medicine & Rehabilitation
DX: M48.061 Spinal stenosis, lumbar region without neurogenic claudication (principal); M51.16 Intervertebral disc disorders with radiculopathy, lumbar region; M47.26 Other spondylosis with radiculopathy, lumbar region
CPT/HCPCS: 64483; 99152; J0702; J1100; J2250; J3490

== ENCOUNTER → 2024-03-24 07:59 | Outpatient (CLI) | payer MEDICARE, OTHER, SELFPAY ==
--- NOTE | 2024-03-24 08:01 | DI.MRI.S_ITS ---
PROCEDURE: MR LUMBAR SPINE WO CON INDICATIONS: Right L4-5 radiculopathy TECHNIQUE: Noncontrast sagittal T1 spin echo and T2 fast echo, sagittal STIR, and T2 fast spin echo through the lumbar spine. In cases with scoliosis, additional coronal T2 fast spin echo may be performed. COMPARISON: [facility], , MRI L-SPINE W/O CONTRAST, 04/08/2020, 7:38. FINDINGS: Image quality: Excellent. Alignment and Curvature: Trace retrolisthesis of L1-L2, L2 on L3, L3 on L4, and L5 on S1. Bone Marrow: Marrow is of normal overall signal. No acute vertebral body compression fractures. Spinal Cord: Conus medullaris terminates at the L1 level. Visualized cord demonstrates normal signal and size. Paraspinous Soft Tissues: No paravertebral masses. T12-L1: No canal stenosis or foraminal stenosis. L1-L2: Disc bulge. Facet and ligament hypertrophy. Borderline canal stenosis. No significant foraminal stenosis. L2-L3: Severe disc height loss. Facet and ligament hypertrophy. Moderate to severe canal stenosis. Magi-ud-ccejfjok right foraminal stenosis. Similar findings. L3-L4: Severe disc height loss. Retrolisthesis of L3 on L4. Posterior disc osteophyte complex. Facet and ligament hypertrophy. Severe canal stenosis. Similar findings to previous. Slak-hl-mignhdcc bilateral foraminal narrowing. L4-L5: Similar to previous. Severe disc height loss. Posterior disc post osteophyte. Facet hypertrophy. Moderate canal stenosis. Moderate bilateral foraminal stenosis with mild flattening deformity on the exiting bilateral L4 nerve roots. L5-S1: Similar to previous. Disc bulge. Facet and ligament hypertrophy. No canal stenosis. Tmmi-gw-enqkdqis right foraminal narrowing and moderate left foraminal narrowing. IMPRESSION: 1. Findings are similar to previous. 2. Extensive underlying degenerative disc disease and facet arthropathy. 3. Canal stenosis is moderate to severe at L2-L3, severe at L3-L4, and moderate at L4-L5. Dictated by: Rhys Nance M.D. on 03/24/2024 at 19:24 Approved by: Rhys Nance M.D. on 03/24/2024 at 19:30
== END ==
LOC: MRI 08:00
PROVIDERS: Family Provider Family Medicine; PCP Physician Assistant; Referring Provider Physical Medicine & Rehabilitation; Visit Provider Physical Medicine & Rehabilitation
DX: M51.26 Other intervertebral disc displacement, lumbar region (principal); M51.36 Other intervertebral disc degeneration, lumbar region; M51.37 Other intervertebral disc degeneration, lumbosacral region; M47.816 Spondylosis without myelopathy or radiculopathy, lumbar region; M47.817 Spondylosis without myelopathy or radiculopathy, lumbosacral region; M48.061 Spinal stenosis, lumbar region without neurogenic claudication; M48.07 Spinal stenosis, lumbosacral region
CPT/HCPCS: 72148